=== PATIENT | male | born 1950 | race Caucasian/White ===

== ENCOUNTER 2016-08-07 10:20 | Day surgery (SDC) | payer OTHER ==
[~2016-08-07] VITALS: Ht 190.5 cm; Wt 133.7 kg
[2016-08-07 11:03] VITALS: BP 125/86; PULSE 79; RESP 18; TEMP 97.8; O2SAT 94
[2016-08-07] MEDS ORDERED: LISI-519 PO (11:17)
[2016-08-07] MEDS ORDERED: FURO40TA PO (11:17)
[2016-08-07] MEDS ORDERED: ASPI81TA5 PO (11:17)
[2016-08-07] MEDS ORDERED: VITA100C2 PO (11:17)
[2016-08-07] MEDS ORDERED: SPIR25TA PO (11:17)
[2016-08-07] MEDS ORDERED: CARV6.252 PO (11:17)
[2016-08-07] MEDS ORDERED: MULT1TAB84 PO (11:17)
[2016-08-07] MEDS ORDERED: AMLO5TAB2 PO (11:17)
[2016-08-07] MEDS ORDERED: DOCU100C PO (11:17)
[2016-08-07] MEDS ORDERED: SODIUM CHLOR 0.9% 1000 ML INJ 1,000 ML IV SCH (11:30)
[2016-08-07 11:37] LABS: AUTOMATED NEUTROPHIL # 4.7 TH/MM3 (1.8-7.7); BASOPHIL # 0.1 TH/MM3 (0-0.2); EOSINOPHIL # 0.3 TH/MM3 (0-0.4); EOSINOPHIL % 3.8 % (0.0-4.0); HEMATOCRIT 46.5 % (39.0-51.0); HEMO FLAGS DIFF FINAL; LYMPH % 21.8 % (9.0-44.0); LYMPHOCYTE # 1.7 TH/MM3 (1.0-4.8); MEAN CELL VOLUME 85.3 FL (80.0-100.0); MEAN CORPUSCULAR HEMOGLOBIN 29.6 PG (27.0-34.0); MEAN CORPUSCULAR HGB CONC 34.7 % (32.0-36.0); MONO % 12.8 % (0.0-8.0); NEUT % 60.6 % (16.0-70.0); PLATELET COUNT 221 TH/MM3 (150-450); RED BLOOD COUNT 5.45 MIL/MM3 (4.50-5.90); RED CELL DISTRIBUTION WIDTH 14.4 % (11.6-17.2); WHITE BLOOD COUNT 7.7 TH/MM3 (4.0-11.0)
[2016-08-07 11:48] LABS: APTT (PATIENT) 27.6 SEC (24.3-30.1); PROTHROMBIN TIME - PATIENT 11.5 SEC (9.8-11.6)
[2016-08-07 11:54] LABS: BICARBONATE 24.5 MEQ/L (21.0-32.0); POTASSIUM 4.4 MEQ/L (3.5-5.1)
[2016-08-07] MEDS ORDERED: HEPARIN-NS/PF INJ 500 ML ONE (12:49)
[2016-08-07] MEDS ORDERED: MIDAZOLAM HCL 5 MG/5 ML VIAL ONE (12:49)
[2016-08-07] MEDS ORDERED: IOHEXOL 350 MG/ML 100 ML BTL (for Cath Lab) OTHER ONE (13:33)
--- NOTE | 2016-08-07 22:17 | EKG ---
Date Performed: 08/07/2016 Time Performed: 11:12:42 PTAGE: 65 years EKG: Sinus rhythm with PAC(s) with borderline 1st degree A-V block Indeterminate axis IV conduction defect Anterolater al infarct - age undetermined The patient has an atypical left bundle branch block and that probably explains the criteria for the anterolateral infarct but clinical correlation would be important. Abno rmal ECG NO PREVIOUS TRACING DOCTOR: Irasema Mead Interpretating Date/Time 08/07/2016 22:16:46
--- NOTE | 2016-08-14 08:43 | MA ---
cc: KELL VILLELA MD, HUMAYUN A. M.D. DATE: 08/07/16 PROCEDURE Right and left heart catheterization. 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 Risks of , bleeding, myocardial infarction, perforation, aspiration, foreseen and unforeseen complications were reviewed. The risk of stent, PTCA, bypass surgery reviewed. The patient fully appeared to understands the risks. PROCEDURE IN DETAIL The patient was draped and prepped in usual sterile manner. The right femoral artery was entered using a micropuncture technique. The 4-Italian sheath left and right coronaries were used to intubate the left and right coronaries. Pigtail catheter was used to intubate the left ventricle. Multiple angiographic views were carried out. At the end of the catheterization procedure all catheters were removed. Both sheaths were left in place and the patient returned to the his room in stable condition. FINDINGS Hemodynamics - PCW was 17/15 mean of 14 and a pulmonary artery pressure was 38/22 with a mean of 28. The right atrial pressure was 13/12, mean of 11. Right ventriculare pressure was 39. The right ventricular end-diastolic pressure was 14. Left ventricular pressure was 96. Left ventricular end-diastolic pressure 48. The aortic pressure was 95/57, mean of 74. There was no evidence of significant gradient, on pullback across the aortic valve VENTRICULOGRAM the overall left ventricular ejection fraction was markedly reduced at 20%. CORONARIES Left main is large and free of disease. The left anterior descending artery is a large artery with a medium-sized diagonal branch. The circumflex artery is a large artery with small first obtuse marginal branch, large second obtuse marginal branch and medium third obtuse marginal branch. The second obtuse marginal branch is bifurcating. There is no significant coronary artery disease noted. The right coronary artery is a codominant vessel with a single posterior descending artery which is small and free of significant disease. CONCLUSION No significant coronary artery disease. A severe cardiomyopathy. Cardiac output estimated both ALLY and thermodilution on the order of 12 liters per minute. PLAN May have to consider ICD versus further medical therapy to improve ejection fraction. Malik Lama MD, FRCP,[facility]/ /2:25 PM /8:[address] [facility]
== END 2016-08-07 19:27 | disposition home or self-care (01) ==
LOC: HCAT 10:20 → HDIC 10:22 → HCAT 19:27
PROVIDERS: ATTEND Internal Medicine Cardiovascular Disease
DX: I11.0 Hypertensive heart disease with heart failure (principal); I50.21 Acute systolic (congestive) heart failure; I44.7 Left bundle-branch block, unspecified; I49.5 Sick sinus syndrome; I34.0 Nonrheumatic mitral (valve) insufficiency; I42.9 Cardiomyopathy, unspecified; F17.210 Nicotine dependence, cigarettes, uncomplicated
CPT/HCPCS: 80048; 82810; 85025; 85610; 85730; 93005; 93460; C1769; C1893; J1644; J2250; J3010; Q9967